=== PATIENT | male | born 1990 | race African-American/Black ===

== ENCOUNTER 2017-11-27 22:43 | Observation (INO) | payer BC ==
--- NOTE | 2017-11-27 22:53 | EDPHY ---
H & P Time Seen by Provider: 11/27/17 22:49 HPI/ROS: HPI CHIEF COMPLAINT: Shortness of breath, productive cough, fever HISTORY OF PRESENT ILLNESS: This patient 27-year-old male, he is visiting [place] from [place], [facility] he drove here, he has been 1 day in [place] then went [place] the mountains, he was playing disc off, he became short of breath and decided to go to the hospital all the tests part where upon arrival to the emergency room he had an O2 saturation of 67%. Patient reports that he had a fever for the past 2 days. He did not take his temperature but had chills. [place] sweaty. Additionally he has had a cough with productive yellow sputum. Denies any hemoptysis. He does feel chest tightness. He was sent down to [facility] as it was thought that he may have high altitude pulmonary edema. He otherwise healthy, denies having any significant medical history. He otherwise felt fine other than the last day with worsening shortness of breath. Past Medical History: No significant medical history Past Surgical History: Knee surgery Social History: Denies drugs alcohol tobacco. 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 Family History: Noncontributory ROS REVIEW OF SYSTEMS: A comprehensive 10 point review of systems is otherwise negative aside from elements mentioned in the history of present illness. Exam Constitutional appears well nontoxic no acute distress, arrives by EMS on a non -rebreather triage nursing summary reviewed, vital signs reviewed, awake/alert. Eyes normal conjunctivae and sclera, EOMI, PERRLA. HENT normal inspection, atraumatic, moist mucus membranes, no epistaxis, neck supple/ no meningismus, no raccoon eyes. Respiratory decreased breath sounds bilaterally, crackles at the bases worse on the right lung than left lung, Cardiovascular rate normal, regular rhythm, no murmur, no edema, distal pulses normal. Gastrointestinal soft, non-tender, no rebound, no guarding, normal bowel sounds, no distension, no pulsatile mass. Genitourinary no CVA tenderness. Musculoskeletal no midline vertebral tenderness, full range of motion, no calf swelling, no tenderness of extremities, no meningismus, good pulses, neurovascularly intact. Skin pink, warm, & dry, no rash, skin atraumatic. Neurologic awake, alert and oriented x 3, AAOx3, moves all 4 extremities equally, motor intact, sensory intact, CN II-XII intact, normal cerebellar, normal vision, normal speech. Psychiatric normal mood/affect. Heme/Lymph/Immune no lymphadenopathy. Differential Diagnosis: Includes but is not limited to in a particular order high altitude pulmonary edema however given the yellow productive sputum, chills , profound shortness of breath it is also possible he has pneumonia, will repeat his chest x-ray here in the emergency room, obtain blood cultures and lactic acid, inflammatory markers, procalcitonin and re-evaluate. Medical Decision Making: Plan for this patient IV establishment blood cultures , inflammatory markers, repeat chest x-ray, repeat labs. Re-evaluation: ED x-ray chest two view: This shows cardiomegaly. I believe there is a left lower lobe infiltrate with retrocardiac infiltrate. CT scan angiogram of the chest shows multifocal pneumonia worse at the right lung base. Dense infiltrate. IV Rocephin and IV azithromycin has been ordered. Blood cultures have been ordered. Patient need to be admitted to the hospital due to hypoxia and pneumonia. EKG interpretation by me on record in [employer] system. Impression time of EKG 11/22/2043, sinus rhythm rate of 90, abnormal T-wave V1 V2 V3. No ST elevation no ST depression 1241: Updated patient on CT results. Right lower lobe dense pneumonia. Multifocal pneumonia seen on CT. No PE. Patient be admitted to the hospitalist service for multifocal pneumonia. Hypoxia. IV Rocephin IV azithromycin has been given. Blood cultures pulled. Lactic acid pending. Source: Patient, EMS Constitutional: Initial Vital Signs Temperature (C) 36.7 C 11/27/17 22:45 Heart Rate 107 H 11/27/17 22:45 Respiratory Rate 18 11/27/17 22:45 Blood Pressure 157/106 H 11/27/17 22:45 O2 Sat (%) 91 L 11/27/17 22:45 O2 Delivery Mode Nasal Cannula O2 (L/minute) 2 Allergies/Adverse Reactions: penicillin G Allergy (Verified 11/27/17 22:54) Home Medications: Medication Instructions Recorded NK [No Known Home Meds] 11/27/17 Medical Decision Making - Data Points Laboratory Results: Laboratory Results 11/27/17 23:00 11/27/17 23:00 Medications Given: Discontinued Medications Azithromycin 500 mg/ Sodium (Chloride) 255 mls @ 255 mls/hr IV DAILY GERSON PRN Reason: Protocol Stop: 12/27/17 22:59 Last Admin: 11/28/17 00:09 Dose: 255 mls Ceftriaxone Sodium/Dextrose (Rocephin 1 Gm (Premix)) 50 mls @ 100 mls/hr IV EDNOW ONE PRN Reason: Protocol Stop: 11/27/17 23:27 Last Admin: 11/27/17 23:34 Dose: 50 mls Sodium Chloride (Ns) 500 mls @ 0 mls/hr IV ONCE ONE PRN Reason: Wide Open Stop: 11/28/17 00:24 Last Admin: 11/28/17 00:44 Dose: 500 mls Departure - Departure Disposition: [facility] Inpatient Acute Clinical Impression: Hypoxia Pneumonia Qualifiers: Pneumonia type: due to unspecified organism Laterality: bilateral Lung location : lower lobe of lung Qualified Code(s): J18.1 - Lobar pneumonia, unspecified organism Condition: Fair
[2017-11-27] MEDS ORDERED: AZITHROMYCIN IV 500 MG in NS 250 ML IV SCH (23:00)
[2017-11-27 23:24] LABS: PLATELET COUNT 340 10^3/uL (150-400)
[2017-11-27] MEDS ORDERED: IOPAMIDOL (ISOVUE 370) 100 ML BTL IV ONE (23:28)
[2017-11-27 23:33] LABS: INR 0.92 (0.83-1.16); PROTIME(PATIENT) 12.6 SEC (12.0-15.0)
[2017-11-27 23:46] LABS: CREATINE KINASE 107 IU/L (0-224)
--- NOTE | 2017-11-27 23:46 | CPEKG ---
Heart Rate: 90 RR Interval: 667 P-R Interval: 156 QRSD Interval: 88 QT Interval: 388 QTC Interval: 475 P Boston: 47 QRS Boston: 21 T Wave Boston: 3 EKG Severity - BORDERLINE ECG - EKG Impression: SINUS RHYTHM EKG Impression: BORDERLINE T ABNORMALITIES, ANTERIOR LEADS EKG Impression: BORDERLINE PROLONGED QT INTERVAL Electronically Signed By: Deonte Huang 28-Nov-2017 07:41:09
[2017-11-28] MEDS ORDERED: NS 500 ML IV ONE (00:23)
[2017-11-28] MEDS ORDERED: ACETAMINOPHEN 325 MG TAB PO PRN (00:45)
[2017-11-28] MEDS ORDERED: ONDANSETRON 4 MG/2 ML VIAL IVP PRN (00:45)
[2017-11-28] MEDS ORDERED: NS 1,000 ML IV SCH (00:45)
--- NOTE | 2017-11-28 07:01 | GHP ---
[f rep st] HISTORY AND PHYSICAL DATE OF ADMISSION: 11/28/2017 Patient[place]CP [place]. SOURCE: Patient provides history, appears reliable. EMR was reviewed and case discussed with ED provider. Patient's accompanying paper chart from [facility] was also reviewed. CHIEF COMPLAINT: Shortness of breath, cough. HISTORY OF PRESENT ILLNESS: This is a very pleasant 27-year-old gentleman with no significant past medical history, who presents to the emergency department at [facility] yesterday evening with complaints of worsening cough and shortness of breath. The patient recently traveled from [place] and drove [place] to the mountains. He reports that in the last 30 hours or so, he has developed a productive cough of yellow sputum. Denies any fevers, chills, nausea, vomiting. The patient does report that he suddenly developed increasing shortness of breath and presented to [facility] for further evaluation. In the emergency department, the patient was noted to be hypoxic at 67%. The patient sent to [facility] for concerns of acute pulmonary edema related to altitude. Patient without any sick contacts. Otherwise reports that he is overall healthy. REVIEW OF SYSTEMS: Negative for fevers or chills. Positive cough, shortness of breath, as noted above. Otherwise, patient denies any other symptoms. ALLERGIES: Penicillin. HOME MEDICATIONS: None. PAST MEDICAL HISTORY: Patient denies. PAST SURGICAL HISTORY: Patient with bilateral knee surgeries for meniscal repair. FAMILY HISTORY: Mother with hyperlipidemia. No lung pathology, asthma or lung disease. 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 He does not smoke, drink, or do drugs. CODE STATUS: Full. PHYSICAL EXAMINATION: VITAL SIGNS: At [facility], initial blood pressure 168/ 109, heart rate 121, temperature 98.0, respiratory rate 22, saturation percent 67% on room air. Vitals upon arrival to the emergency department at [facility], blood pressure 157/106, heart rate 107, respiratory rate 18, O2 saturation 91% on 2 L by nasal cannula, temperature 36.7, resolved to saturation 95. Vitals currently available: Blood pressure is 123/79, heart rate is 93, respiratory rate 20, O2 saturation is 95% on 2 L by nasal cannula, temperature 36.8. GENERAL: No acute distress. Very pleasant, obese adult gentleman is lying quietly in bed. HEENT: Head normocephalic, atraumatic. Eyes: Extraocular muscles are intact. Pupils equal, round, reactive to light bilaterally and symmetric. No scleral icterus or conjunctival injection. ENT: Mucous membranes appear moist. No oropharyngeal erythema or exudates. Dentition is intact. NECK: Supple. Trachea midline. CV: Regular rate and rhythm. Borderline in the 90s. No murmurs, rubs, or gallops appreciated. RESPIRATORY: Unlabored breathing. LUNGS: With crackles in the right middle lower lung field. Few crackles on the left. No wheezes or rhonchi appreciated. No labored breathing. ABDOMEN: Obese, soft, nontender to palpation. No rebound, guarding, or masses appreciated. : No suprapubic tenderness to palpation. No Lee catheter in place. EXTREMITIES: No cyanosis, clubbing, or edema appreciated. Patient with 1+ pedal pulses bilaterally and symmetric. No edema. NEURO: Grossly nonfocal. No facial drooping. Patient awake, alert, and oriented x4. PSYCH: Patient pleasant. Thought process, content, and questions appropriate, not agitated. LABORATORY STUDIES: Reviewed from [facility]. WBC 17.6, H and H 15.6, 45.2, MCV of 90.0, platelet count is 356. Neutrophil percent 53%, bands of 6%. Sodium 138, potassium 3.8, chloride 102, CO2 21, glucose 112, BUN 11, creatinine is 1.2. GFR greater than 60. Calcium is 9.8, magnesium 1.2. D- dimer is 242, which is in the negative range. BTNP is 1290. Troponin 0.037, normal range is less than 0.034. Laboratory studies repeated at [facility]: WBC is 14.53, H and H is 15.0, 42.7, MCV 86.3, platelet count is 340. No bands. ESR of 20. PT is 12.6, INR 0.92, PTT is 29.5. VBG lactic acid 1.3. Sodium is 136, potassium 4.6, chloride 99, CO2 is 24, anion gap 13, BUN is 11, creatinine is 1.2. GFR greater than 60, glucose 105, calcium 9.8, magnesium 1.9 , total bilirubin 0.9, conjugated bilirubin 0.3, ALT is 43, AST is 20, alk phos is 76. CK is 107, CK-MB is 0.84, troponin 0.028. CRP is 23.2. BTNP is 11.5, total protein 7.9, albumin 4.5, lipase is 32, procalcitonin is 0.04. UA specific gravity 1.016 is clear with pH of 6.0, 1+ blood, 1-3 WBCs, otherwise negative. Flu A/B PCR is negative for both. Blood cultures x2 are pending. IMAGING: Chest x-ray image report reviewed myself, addended report initially note reported normal, bilateral view showing left lower lobe peribronchial opacities over the spine obscured by superimposed diaphragm on frontal projection. CTA chest: Negative for PE, multifocal lung consolidation, probably pneumonia, greatest at the right lower lobe with additional infiltrates within the left lower lobe and right upper lobe. EKG reviewed myself showing sinus tachycardia in the 90s, nonspecific T-wave abnormalities anterior leads transitioned to a T-wave inversion. No acute ST changes. QTc 475. ASSESSMENT AND PLAN: Pleasant 27-year-old gentleman who presents from [facility] and transferred for persistent cough over the last several days and worsening dyspnea with hypoxia. 1. Right middle lobe pneumonia. The patient has bilateral pneumonia, greatest with right middle lobe infiltrate. The patient has been started on azithromycin and Rocephin for community-acquired pneumonia coverage. Blood cultures are pending. The patient did have a leukocytosis, normal VBG, normal renal function. He did meet systemic inflammatory response syndrome criteria, but does not appear to be severely septic. At this time, appears comfortable. Vitals are stable. Will plan to continue antibiotic coverage if patient's symptoms and respiratory status improve and transitioned to p.o. 2. Hypoxia related to pneumonia as above. The [place] is from [place]. Will plan to try to do room air challenge later today and see if patient will be able to tolerate oxygenation at lower altitude without supplementation. 3. Elevated blood pressure without history of hypertension, likely related to patient's hypoxia and acute respiratory status. His blood pressures at this time have improved. No need for intervention at this time. We will continue to monitor and treat if blood pressures escalate in absence of worsening respiratory status. 4. Fluids, electrolytes and nutrition. Intravenous fluids for some gentle hydration. Electrolyte monitoring replacement if needed. Diet as tolerated. 5. Prophylaxis. Sequential compression devices. Consider anticoagulation if patient should stay additional day. Otherwise, will encourage mobilization and anticipation for possible short hospital stay. 6. Code status is full. 7. Disposition. Patient has been admitted to observation status at this time on PCU for close cardiac and respiratory monitoring. At this point, if patient is able to transition off oxygen, anticipate less than 48-hour stay as patient does plan to return home back to [place] shortly. He plans to fly back, however. /[id number]/MODL MTDD
[2017-11-28] MEDS ORDERED: NITROGLYCERIN 0.4 MG/HR PATCH TD SCH (09:00)
--- NOTE | 2017-11-28 12:22 | ASMTCMCOM ---
CM Note CM Note Notes: Patient admitted for hypoxia secondary to PNA. He is traveling in [place] from his home in [place]. Patient is normally independent, lives in [place] with and children. I do not anticipate any discharge needs. Date Signed: 11/28/2017 12:22 PM Electronically Signed By:Linda Rodriguez RN
[2017-11-28 15:10] VITALS: BP 143/98; PULSE 108; RESP 18; TEMP 97.9; O2SAT 94
--- NOTE | 2017-11-28 15:40 | PDDCSUM ---
Discharge Summary Discharge Summary: DISCHARGE DIAGNOSES: -acute hypoxemic respiratory failure -suspected high altitude pulmonary edema PROCEDURES: CT scan of chest showing predominantly right mid and lower lobe fluffy alveolar opacity with mild left lower lobe involvement HOSPITAL COURSE SUMMARY: This generally healthy man with no history of heart or lung disease traveled from [place] to [place] spent 1 night in [place] and then promptly traveled up to [facility] where he stayed for a couple of nights and was doing a lot of high altitude hiking at greater than 9000 ft. He developed a cough with severe and worsening dyspnea without fevers or chest pain, without typical symptoms of cold or flu, without nausea or myalgias. He was fairly tachycardic with minimal exertion. He came down from [place] to [place] and presented to the emergency room where he had tachycardia to 107 at rest, dyspnea and hypoxemia requiring oxygen, no fever, a normal prolactin, and elevated BNP greater than 1100 which is a pro N terminal BNP, and also had a CT scan of the chest showing a significant alveolar infiltrate that appeared as a fluffy right mid and lower lobe illness with minimal air bronchogram changes. There is also some involvement of the left lower lobe, but no effusions. There did not appear to be anything that look like left-sided heart failure. The patient was not given any diuretic medicine. He was treated with oxygen. He did receive 1 dose of Rocephin and 1 dose of azithromycin, though looking back at his symptoms vital signs lack of fever imaging studies and normal prolactin it is not felt that he has a bacterial infection. His symptoms did resolve completely overnight, his vital signs normalized, and now in his presenting tachycardia of 107 is down to a pulse of low 80s, and he is no longer hypoxemic nor requiring oxygen. At this time the most likely diagnosis is a case of high altitude pulmonary edema. Viral pneumonia is felt to be quite unlikely given the lack of other typical viral symptoms and the extremely rapid resolution of symptoms in approximately 12 hr. Additionally as above bacterial infection is not felt to be involved. At this point it is recommended that he wait 1 more day before traveling back to [place] on a commercial airline. Otherwise no medications are felt to be needed at this point. He does not have any plans at the moment to travel back to high altitude other than flying. PENDING TEST RESULTS: None MEDICATION CHANGES: None FOLLOW-UP PLAN: The patient will be traveling back to his home in [place] and is strongly recommended that he seek care within 7-10 days with the primary care physician or at an urgent care for review of his acute symptoms and consider repeat imaging. He is also strongly recommended to seek the care of a coach builder to reassess his illness and for recommendations for future travel plans. Greater than 35 minutes bedside and care coordination time today
--- NOTE | 2017-11-28 15:49 | ASDISCHSUM ---
Discharge Information Plan Status:Home with No Needs Medically Cleared to Leave:11/28/2017 Discharge Date:11/28/2017 03:46 PM CM D/C Disposition:Home, Routine, Self-Care ADT D/C Disposition:Home, Routine, Self-Care Projected Discharge Date:11/28/2017 03:46 PM Transportation at D/C: Discharge Delay Reason: Follow-Up Date:11/28/2017 03:46 PM Discharge Slot: Final Diagnosis: Placement Information Patient Contact Information Contact Name:DAI Relationship: Address:[address] Work Phone: City:[facility] Phone: State/Zip Code:[place] [address] Email: Financial Information Financial Class:HMO and PPO Plans Primary Plan Desc: OUT OF STATE PPO Primary Plan Number:[id number] Secondary Plan Desc: Secondary Plan Number: Assessment Information [facility] CM Progress Note CM Note CM Note Notes: Patient admitted for hypoxia secondary to PNA. He is traveling in [place] from his home in [place]. Patient is normally independent, lives in [place] with and children. I do not anticipate any discharge needs. Date Signed: 11/28/2017 12:22 PM Electronically Signed By:Linda Rodriguez RN LACE RADHA Length of stay for Answers: Less than 1 day current admission Acuity / Level of Answers: No Care: Did the patient have an inpatient admission? # of Emergency department Answers: 0 visits in the last 6 months Date Signed: 11/28/2017 03:47 PM Electronically Signed By:Nessa Madrigal RN Case Management Discharge Plan Note Case Management Discharge Discharge Order Complete? Answers: Yes Patient to Obtain Answers: Independently Medications Transportation Arranged Answers: Family/Friends Discharge Comments Notes: Pt has flight home to [place] tomorrow morning. Pt d/c independent. Date Signed: 11/28/2017 03:48 PM Electronically Signed By:Nessa Madrigal RN Intervention Information
[2017-11-28] MEDS ORDERED: AZITHROMYCIN IV 250 MG in NS 250 ML IV SCH (21:00)
[2017-11-28] MEDS ORDERED: PATCH REMOVAL 1 EA PATCH TD SCH (21:00)
== END 2017-11-28 15:46 | disposition home or self-care (01) ==
LOC: F2W 11-28 01:20
PROVIDERS: ADMIT Family Medicine; ATTEND Internal Medicine
DX: J96.01 Acute respiratory failure with hypoxia (principal); R91.8 Other nonspecific abnormal finding of lung field; R00.0 Tachycardia, unspecified; R03.0 Elevated blood-pressure reading, without diagnosis of hypertension; D72.829 Elevated white blood cell count, unspecified; Z88.0 Allergy status to penicillin
CPT/HCPCS: 71046; 71275; 93005; G0378; J0456; J0696; Q9967